=== PATIENT | male | born 1960 | race Caucasian/White ===

== ENCOUNTER 2016-10-27 13:33 | Emergency (ER) | payer OTHER ==
[~2016-10-27] VITALS: Ht 175.3 cm; Wt 88.5 kg
[2016-10-27 13:46] VITALS: BP 147/86; PULSE 76; RESP 16; TEMP 98.5; O2SAT 99
[2016-10-27] MEDS ORDERED: [UNRECOGNIZED DRUG - REMARK] (14:23)
[2016-10-27] MEDS ORDERED: SODIUM CHLORIDE 0.9% FLUSH 10 ML FLUSH IV FLUSH PRN (14:30)
[2016-10-27] MEDS ORDERED: KETOROLAC TROMETHAMINE 30 MG/ML (IVP) VIAL IVP ONE (14:30)
[2016-10-27] MEDS ORDERED: ONDANSETRON HCL 4 MG/2 ML VIAL IVP ONE (14:30)
--- NOTE | 2016-10-27 14:33 | PD ---
HPI Chief Complaint: Flank/Kidney Pain Time Seen by Provider: 14:31 Travel History International Travel<30 days: No Contact w/Intl Traveler<30days: No Traveled to known affect area: No History of Present Illness HPI Patient comes in complaining of right flank pain ongoing for 2 days. Patient states when the pain began it was and continues as a constant pain in his right flank more medial and was having difficulty urinating. He states his urination has since improved. He continues to have the pain. Patient was taking tramadol for the pain however states the tramadol was making him dizzy on his job he was unable to take it except at night before bed. Pain is worse with certain movement. Patient reports associated pain in his right lower quadrant his abdomen. Denies any nausea, vomiting, diarrhea, chest pain, shortness breath, fevers, or history of kidney stones. Patient states that he was told that he has emphysema and was at risk for kidney stones but denies ever actually passing a kidney stone. PFSH Past Medical History High Cholesterol: Yes Hypertension: Yes Social History Alcohol Use: No Tobacco Use: Yes Substance Use: No Allergies-Medications (Allergen,Severity, Reaction): Coded Allergies: No Known Allergies (Unverified , 10/27/16) Reported Meds & Prescriptions Reported Meds & Active Scripts Active Flomax (Tamsulosin HCl) 0.4 Mg Cap 0.4 Mg PO HS Ibuprofen 800 Mg Tab 800 Mg PO Q8H PRN Reported [Unkown Meds] Review of Systems Except as stated in HPI: all other systems reviewed are Neg Physical Exam Narrative GENERAL: Well-developed, overly nourished, in no acute distress, and non-ill appearing. SKIN: Focused skin assessment warm and dry. HEAD: Atraumatic. Normocephalic. EYES: Pupils equal and round. EOMI. No scleral icterus. No injection or drainage. ENT: No nasal bleeding or discharge. Mucous membranes pink and moist. NECK: Trachea midline. No JVD. Supple. No nuclear rigidity. CARDIOVASCULAR: Regular rate and rhythm. No murmur appreciated. RESPIRATORY: No accessory muscle use. No respiratory distress. Clear to auscultation. Breath sounds equal bilaterally. GASTROINTESTINAL: Abdomen soft, non-tender, nondistended. Hepatic and splenic margins not palpable. Normal bowel sounds 4. No pulsatile mass. No CVA tenderness. MUSCULOSKELETAL: No obvious deformities. No clubbing. No cyanosis. No edema. Full range of motion. NEUROLOGICAL: Awake and alert. No obvious cranial nerve deficits. Motor grossly within normal limits. Normal speech. PSYCHIATRIC: Appropriate mood and affect; insight and judgment normal. Data Data Last Documented VS Vital Signs Date Time Temp Pulse Resp B/P Pulse Ox O2 Delivery O2 Flow Rate FiO2 10/27/16 15:25 76 16 145/80 97 Room Air 10/27/16 13:46 98.5 Orders Complete Blood Count With Diff (10/27/16 14:28) Lipase (10/27/16 14:28) Urinalysis - C+S If Indicated (10/27/16 14:28) Ct Abd/Pel W/O Iv Contrast (10/27/16 14:28) Iv Access Insert/Monitor (10/27/16 14:28) Ecg Monitoring (10/27/16 14:28) Oximetry (10/27/16 14:28) Ondansetron Inj (Zofran Inj) (10/27/16 14:30) Sodium Chloride 0.9% Flush (Ns Flush) (10/27/16 14:30) Ketorolac Inj (Toradol Inj) (10/27/16 14:30) Comprehensive Metabolic Panel (10/27/16 14:28) Labs Laboratory Tests Test 10/27/16 14:40 White Blood Count 14.5 TH/MM3 Red Blood Count 4.60 MIL/MM3 Hemoglobin 13.1 GM/DL Hematocrit 39.7 % Mean Corpuscular Volume 86.2 FL Mean Corpuscular Hemoglobin 28.5 PG Mean Corpuscular Hemoglobin 33.0 % Concent Red Cell Distribution Width 13.3 % Platelet Count 289 TH/MM3 Mean Platelet Volume 8.6 FL Neutrophils (%) (Auto) 89.8 % Lymphocytes (%) (Auto) 8.5 % Monocytes (%) (Auto) 1.3 % Eosinophils (%) (Auto) 0.2 % Basophils (%) (Auto) 0.2 % Neutrophils # (Auto) 13.1 TH/MM3 Lymphocytes # (Auto) 1.2 TH/MM3 Monocytes # (Auto) 0.2 TH/MM3 Eosinophils # (Auto) 0.0 TH/MM3 Basophils # (Auto) 0.0 TH/MM3 CBC Comment DIFF FINAL Differential Comment Urine Collection Type CLEAN CATCH Urine Color YELLOW Urine Turbidity CLEAR Urine pH 5.5 Urine Specific [place] 1.006 Urine Protein NEG mg/dL Urine Glucose (UA) NEG mg/dL Urine Ketones NEG mg/dL Urine Occult Blood LARGE Urine Nitrite NEG Urine Bilirubin NEG Urine Leukocyte Esterase NEG Urine RBC 25-49 /hpf Urine Squamous Epithelial 0-5 /hpf Cells Urine Calcium Oxalate Crystals FEW /hpf Microscopic Urinalysis Comment CULT NOT INDICATED Urine Collection Time 14:40 Sodium Level 136 MEQ/L Potassium Level 3.7 MEQ/L Chloride Level 102 MEQ/L Carbon Dioxide Level 24.7 MEQ/L Anion Gap 9 MEQ/L Blood Urea Nitrogen 12 MG/DL Creatinine 1.10 MG/DL Estimat Glomerular Filtration 70 ML/MIN Rate Random Glucose 110 MG/DL Calcium Level 8.7 MG/DL Total Bilirubin 1.5 MG/DL Aspartate Amino Transf 22 U/L (AST/SGOT) Alanine Aminotransferase 29 U/L (ALT/SGPT) Alkaline Phosphatase 68 U/L Total Protein 7.5 GM/DL Albumin 4.0 GM/DL Lipase 96 U/L MDM Medical Decision Making Medical Screen Exam Complete: Yes Emergency Medical Condition: Yes Differential Diagnosis Renal calculi, pancreatitis, musculoskeletal pain, appendicitis, diverticulitis , UTI, electrolyte abnormality, pneumonia, dehydration, other Narrative Course The patient presented with history, exam and evaluation consistent with kidney stone. CT scan showed evidence of stone without obstruction, but hydronephrosis and hydroureter. Lab evaluation revealed no serious abnormality. There was no evidence to suggest obstructive infection. The patients pain was well controlled and the patient is tolerating fluids. There was no clinical evidence to support appendicitis, bowel obstruction, cholecystitis/cholelithiasis, pancreatitis, perforation of gastric ulcer, colitis, diverticulitis, bacterial peritonitis, obstruction, volvulus, hernial incarceration or strangulation at this time. There was no evidence to support vascular pathology such as AAA, mesenteric ischemia. There was also no clinical evidence by history, exam or risk factors to suggest atypical presentation of cardiac disease such as ACS, AMI or atypical angina. Diagnosis, plan of care, management and acute outpatient follow up with Urology was discussed with the patient. Warnings to return immediately, such as worsening pain not controlled by pain medications, vomiting, fever or chills or worsening of condition were discussed. The patient agreed with plan. Patient in no obvious distress upon re-evaluation. All pertinent laboratory/ Radiology result(s) discussed with patient. Patient was asked if they wanted to speak to my attending, which the patient did not wish to do at this time. Any questions/concerns in reference to patient diagnosis/condition discussed and clarified prior to patient's discharge. Reinforced sheer importance of close follow up with patient's primary physician or primary care clinic and urologist. Instructed patient to return to ED immediately, if symptoms return/ worsen. Pt showed understanding of above instructions. Further instructions and recommendations were detailed in discharge paperwork. Pt ambulated without difficulty out of ED at discharge. Diagnosis Primary Impression: Renal calculi Additional Impressions: Hydronephrosis of right kidney Hydroureter on right Referrals: Angel Nelson MD Patient Instructions: General Instructions, Hydronephrosis (ED), Kidney Stones (ED) Additional Instructions: Follow-up with your primary care physician and urologist in 2-3 days for reevaluation. Take all medication as prescribed. Return to the emergency department if symptoms get worse. Med/Other Pt SpecificInfo: Prescription(s) given Scripts Tamsulosin (Flomax)0.4 Mg Cap0.4 Mg PO HS #10 CAP Ref 0 Prov:Mehnaz Novoa MD 10/27/16 Ibuprofen 800 Mg [id number] Mg PO Q8H PRN (PAIN SCALE 1 TO 10) #21 TAB Ref 0 Prov:Mehnaz Novoa MD 10/27/16 Disposition: 01 DISCHARGE HOME Condition: Stable Haris Collado Oct 27, 2016 14:33
[2016-10-27 14:40] VITALS: O2SAT 97
[2016-10-27 14:44] LABS: BLOOD, URINE LARGE (NEG); GLUCOSE,URINE NEG (NEG); KETONE, URINE NEG (NEG); NITRITE,URINE NEG (NEG); PH, URINE 5.5 (5.0-8.5)
[2016-10-27 14:47] LABS: AUTOMATED NEUTROPHIL # 13.1 TH/MM3 (1.8-7.7); BASOPHIL % 0.2 % (0.0-2.0); EOSINOPHIL % 0.2 % (0.0-4.0); HEMATOCRIT 39.7 % (39.0-51.0); LYMPH % 8.5 % (9.0-44.0); LYMPHOCYTE # 1.2 TH/MM3 (1.0-4.8); MEAN CELL VOLUME 86.2 FL (80.0-100.0); MEAN CORPUSCULAR HEMOGLOBIN 28.5 PG (27.0-34.0); MONO % 1.3 % (0.0-8.0); NEUT % 89.8 % (16.0-70.0); PLATELET COUNT 289 TH/MM3 (150-450); RED CELL DISTRIBUTION WIDTH 13.3 % (11.6-17.2); WHITE BLOOD COUNT 14.5 TH/MM3 (4.0-11.0)
[2016-10-27 14:50] LABS: HEMO FLAGS DIFF FINAL
[2016-10-27 14:57] LABS: CHLORIDE 102 MEQ/L (98-107); POTASSIUM 3.7 MEQ/L (3.5-5.1); SODIUM (NA) 136 MEQ/L (136-145)
[2016-10-27 15:01] LABS: ANION GAP 9 MEQ/L (5-15); BICARBONATE 24.7 MEQ/L (21.0-32.0); BLOOD UREA NITROGEN 12 MG/DL (7-18)
--- NOTE | 2016-10-27 15:02 | RADHPO ---
EXAM DATE/TIME: 10/27/2016 14:41 [facility] COMPARISON: No previous studies available for comparison. INDICATIONS : Right flank pain x 3 days. Difficulty urinating. ORAL CONTRAST: No oral contrast ingested. RADIATION DOSE: 16.77 CTDIvol (mGy) MEDICAL HISTORY : Hypertension. SURGICAL HISTORY : None. ENCOUNTER: Initial ACUITY: 3 days PAIN SCALE: 8/10 LOCATION: Right flank TECHNIQUE: Volumetric scanning of the abdomen and pelvis was performed. Using automated exposure control and ad justment of the mA and/or kV according to patient size, radiation dose was kept as low as reasonably achievable to obtain optimal diagnostic quality images. FINDINGS: LOWER LUNGS: The visualized lower lungs are clear. LIVER: Homogeneous density without lesion. There is no dilation of the biliary tree. No calcified gallston es. SPLEEN: Normal size without lesion. PANCREAS: Within normal limits. KIDNEYS: The right kidney is more prominent than the left and mildly indistinct with mild hydronephrosis. Ther e is mild dilatation of the right ureter. There is a 3-4 mm calcification projected into the posterio r right side of the bladder consistent with a distal ureteral calculus at the level of the ureteroves icular junction. The left kidney is unremarkable in appearance. ADRENAL GLANDS: Within normal limits. VASCULAR: There is no aortic aneurysm. BOWEL/MESENTERY: The stomach, small bowel, and colon demonstrate no acute abnormality. There is no free intraperitone al air or fluid. ABDOMINAL WALL: Within normal limits. RETROPERITONEUM: There is no lymphadenopathy. BLADDER: No wall thickening or mass. REPRODUCTIVE: Within normal limits. INGUINAL: There is no lymphadenopathy or hernia. MUSCULOSKELETAL: Within normal limits for patient age. CONCLUSION: 3-4 mm calcification projected into the right posterior bladder consistent with a distal ureteral ocu lar sverse is recently passed stone. There is mild right hydronephrosis and hydroureter. Herber Hamilton MD on October 27, 2016 at 14:57 Board Certified Radiologist. This report was verified electronically.
[2016-10-27 15:04] LABS: ALT (GPT) 29 U/L (12-78); AST (GOT) 22 U/L (15-37); GLOMERULAR FILTRATION RATE 70 ML/MIN (>89)
[2016-10-27 15:06] LABS: TOTAL BILIRUBIN ADULT 1.5 MG/DL (0.2-1.0)
[2016-10-27 15:07] LABS: ALKALINE PHOSPHATASE 68 U/L (45-117)
[2016-10-27 15:08] LABS: METHOD OF COLLECTION CLEAN CATCH; SQUAMOUS EPITHELIAL CELL URINE 0-5 /hpf (0-5); URINE COLOR YELLOW (YELLW/STRAW)
[2016-10-27 15:09] LABS: CALCIUM OXALATE CRYSTALS,URINE FEW /hpf; COMMENT (UR) CULT NOT INDICATED; CULTURE IF INDICATED CULT NOT INDICATED
[2016-10-27] MEDS ORDERED: IBUP800T23 PO (15:14)
[2016-10-27] MEDS ORDERED: TAMS5CAP PO (15:14)
[2016-10-27 15:25] VITALS: BP 145/80; PULSE 76; RESP 16; O2SAT 97
== END 2016-10-27 15:44 | disposition home or self-care (01) ==
LOC: PHEFT 13:33
DX: N20.0 Calculus of kidney (principal); N13.30 Unspecified hydronephrosis; N13.4 Hydroureter; E78.00 Pure hypercholesterolemia, unspecified; I10 Essential (primary) hypertension; Z72.0 Tobacco use
CPT/HCPCS: 74176; 80053; 81001; 83690; 85025; 96374; 99284; J1885